=== PATIENT | male | born 1950 | race Caucasian/White ===

== ENCOUNTER → 2020-08-04 | Outpatient (CLI) | payer MEDICARE, OTHER ==
[~2020-08-04] MED LIST: ALPR0.5T6 PO; AMLO-187 PO; ASPI-630 PO; LANS30CA66 PO; SULF-143 PO; TRAM-48 PO
--- NOTE | 2020-08-04 15:49 | RAD ---
MRI BRAIN WO History:Reason: HALLUCINATIONS / Spl. Instructions: / History: Technique: Multiplanar, multi sequential MR imaging was performed of the brain without contrast. Comparison: None Findings: No acute infarct. No intracranial hemorrhage. No mass effect. No hydrocephalus. Mild brain parenchymal volume loss. Moderate FLAIR hyperintense foci within the hemispheric white mat ter, most often due to chronic microvascular ischemia. Imaged orbits are unremarkable. Mild paranasal sinus mucosal thickening. Minimal mastoid fluid. Impression: 1. No acute intracranial abnormality. 2. Moderate sequelae of chronic microvascular ischemia. Electronically signed by: Noah Leos DO (08/04/2020 3:47 PM) [id number]
== END ==
LOC: MRI 10:28
PROVIDERS: ATTEND Nurse Practitioner Family
DX: I67.82 Cerebral ischemia (principal); R44.1 Visual hallucinations
CPT/HCPCS: 70551